=== PATIENT | female | born 1960 | race Two or more races ===

== ENCOUNTER 2017-04-02 21:11 | Emergency (ER) | payer BC, MEDICARE ==
[2017-04-02] MEDS ORDERED: IBUPROFEN 600 MG TABLET PO ONE (22:51)
--- NOTE | 2017-04-02 22:53 | ER Document Report ---
HPI - HPI Patient complains to provider of: Leg injury Onset: Other - 5 days ago Onset/Duration: Better Quality of pain: Achy Pain Level: 1 Context: Patient states that she tripped and fell 2 separate 5 days ago. Patient states that she fell landing on her knee and then she rolled her left ankle. Patient complains of bruising and swelling to left lower extremity and left ankle. Patient states that her family is concerned that she may have fractured something and they wanted her to be evaluated. Patient states the pain and swelling has started to improve. Patient does take Xarelto for history of PE in the past. Associated Symptoms: Other - Left lower extremity swelling and bruising Exacerbated by: Movement Relieved by: Denies Similar symptoms previously: No Recently seen / treated by doctor: No - ROS ROS below otherwise negative: Yes Systems Reviewed and Negative: Yes All other systems reviewed and negative - CONSTITUTIONAL Constitutional: DENIES: Fever - REPRODUCTIVE Reproductive: DENIES: : - MUSCULOSKELETAL Musculoskeletal: REPORTS: Extremity pain, Swelling - DERM Skin Color: Ecchymosis Skin Problems: None Past Medical History - General Information source: Patient - Social History Smoking Status: Never Smoker Frequency of alcohol use: None Drug Abuse: None Occupation: None Lives with: Family Family History: Reviewed & Not Pertinent - Past Medical History Cardiac Medical History: Reports: Hx DVT, Hx Hypercholesterolemia, Hx Hypertension, Hx Pulmonary Embolism - 2006 Pulmonary Medical History: Reports: Hx Asthma Denies: Hx Tuberculosis Renal/ Medical History: Denies: Hx Peritoneal Dialysis Malignancy Medical History: Reports: Hx Breast Cancer Psychiatric Medical History: Reports: Hx Anxiety, Hx Bipolar Disorder, Hx Depression - Sometimes Past Surgical History: Reports: Hx Breast Surgery - Bilateral mastectomies 09/24, debridement 10/29/2013 and 10/31/2013, Hx Cholecystectomy, Hx Tubal Ligation - Immunizations Hx Diphtheria, Pertussis, Tetanus Vaccination: Yes Hx Pneumococcal Vaccination: 08/05/13 Vertical Provider Document - CONSTITUTIONAL Agree With Documented VS: Yes Exam Limitations: No Limitations General Appearance: WD/WN, No Apparent Distress - INFECTION CONTROL TRAVEL OUTSIDE OF THE [place] IN LAST 30 DAYS: No - HEENT HEENT: Atraumatic, Normocephalic - NECK Neck: Normal Inspection - RESPIRATORY Respiratory: No Respiratory Distress O2 Sat by Pulse Oximetry: 97 - CARDIOVASCULAR Pulses: Normal: Posterior tibial, Dorsalis pedis - MUSCULOSKELETAL/EXTREMETIES Musculoskeletal/Extremeties: MAEW, Tender - Tenderness to left knee tibial tuberosity with surrounding ecchymosis and edema. Patient with left ankle tenderness over lateral malleolar area with 1+ edema, Edema, Eccymosis - NEURO Level of Consciousness: Awake, Alert, Appropriate Motor/Sensory: No Motor Deficit - DERM Integumentary: Warm, Dry, No Rash Course - Vital Signs Vital signs: Temp Pulse Resp BP Pulse Ox 98.5 F 84 20 123/93 H 97 04/02/17 22:33 04/02/17 22:33 04/02/17 22:33 04/02/17 22:33 04/02/17 22:33 - Diagnostic Test Radiology reviewed: Image reviewed, Reports reviewed Procedures - Immobilization Left Knee Pre-Proc Neuro Vasc Exam: Normal Immobilizer type: Chuy wrap Performed by: PCT Post-Proc Neuro Vasc Exam: Normal Alignment checked and good: Yes Left Ankle Pre-Proc Neuro Vasc Exam: Normal Immobilizer type: Ankle stirrup Performed by: PCT Post-Proc Neuro Vasc Exam: Normal Alignment checked and good: Yes Discharge - Discharge Clinical Impression: Contusion of leg, left Qualifiers: Encounter type: initial encounter Qualified Code(s): S80.12XA - Contusion of left lower leg, initial encounter Ankle sprain Qualifiers: Encounter type: initial encounter Involved ligament of ankle: unspecified ligament Laterality: left Qualified Code(s): S93.402A - Sprain of unspecified ligament of left ankle, initial encounter Condition: Stable Disposition: HOME, SELF-CARE Instructions: Ankle Stirrup Splint ([facility]), Contusion ([facility]), Sprained Ankle ([facility]) Additional Instructions: Return immediately for any new or worsening symptoms Followup with your primary care provider, call tomorrow to make a followup appointment Follow-up with orthopedic doctor for any continued pain or problems use your walker that you have at home to help with ambulation Referrals: [facility] [Provider Group] - Follow up as needed BLANCO BISWAS MD [Primary Care Provider] - Follow up tomorrow
--- NOTE | 2017-04-02 23:38 | RADIOLOGY REPORT (SQ) ---
EXAM DESCRIPTION: ANKLE LEFT COMPLETE COMPLETED DATE/TIME: 04/02/2017 11:07 pm REASON FOR STUDY: fall, left lat ankle pain COMPARISON: None. NUMBER OF VIEWS: Three views. TECHNIQUE: AP, lateral, and oblique radiographic images acquired of the left ankle. LIMITATIONS: None. FINDINGS: MINERALIZATION: Normal. BONES: No acute fracture or dislocation. No worrisome bone lesions. JOINTS: No effusions. SOFT TISSUES: No soft tissue swelling. No foreign body. OTHER: No other significant finding. IMPRESSION: NO RADIOGRAPHIC EVIDENCE OF ACUTE INJURY. TECHNICAL DOCUMENTATION: JOB ID: [id number] [employer]- All Rights Reserved
--- NOTE | 2017-04-02 23:39 | RADIOLOGY REPORT (SQ) ---
EXAM DESCRIPTION: TIBIA FIBULA LEFT COMPLETED DATE/TIME: 04/02/2017 11:07 pm REASON FOR STUDY: fall, pain to tibial tuberosity COMPARISON: None. NUMBER OF VIEWS: Two views. TECHNIQUE: Two radiographic images acquired of the left tibia and fibula to include the knee and ank le in at least one projection. LIMITATIONS: None. FINDINGS: MINERALIZATION: Normal. BONES: No acute fracture or dislocation. No worrisome bone lesions. SOFT TISSUES: No obvious swelling or foreign body. OTHER: No other significant finding. IMPRESSION: NO RADIOGRAPHIC EVIDENCE OF ACUTE INJURY. TECHNICAL DOCUMENTATION: JOB ID: [id number] [employer]- All Rights Reserved
[2017-04-03 00:34] VITALS: BP 117/94
== END 2017-04-03 00:48 | disposition home or self-care (01) ==
LOC: ER 21:11
DX: S93.402A Sprain of unspecified ligament of left ankle, initial encounter (principal); S80.12XA Contusion of left lower leg, initial encounter; S80.02XA Contusion of left knee, initial encounter; W19.XXXA Unspecified fall, initial encounter; I10 Essential (primary) hypertension; J45.909 Unspecified asthma, uncomplicated; Z86.711 Personal history of pulmonary embolism; Z79.01 Long term (current) use of anticoagulants; Z86.718 Personal history of other venous thrombosis and embolism
CPT/HCPCS: 99283; 73610; 73590; L4350; A9270

== ENCOUNTER → 2017-11-29 | Outpatient (CLI) | payer MEDICARE ==
--- NOTE | 2017-11-29 15:23 | RADIOLOGY REPORT (SQ) ---
EXAM DESCRIPTION: CT CHEST WITH COMPLETED DATE/TIME: 11/29/2017 2:15 pm REASON FOR STUDY: BREAST CA C50.911 MALIGNANT NEOPLASM OF UNSP SITE OF RIGHT FEMALE M[place] COMPARISON: 12/27/2015 TECHNIQUE: CT scan of the chest performed using helical scanning technique with dynamic intravenous contrast injection. Images reviewed with lung, soft tissue and bone windows. Reconstructed coronal and sagittal MPR images reviewed. All images stored on PACS. All CT scanners at this facility use dose modulation, iterative reconstruction, and/or weight based d osing when appropriate to reduce radiation dose to as low as reasonably achievable (ALARA). [facility]: Dose Right [facility]: CareDose [facility]: Dose Right [facility]: Teradose 4D [facility]: [employer]Plus CONTRAST TYPE AND DOSE: contrast/concentration: Isovue 370.00 mg/ml; Total Contrast Delivered: 79.0 ml; Total Saline Delivered: 24.3 ml RENAL FUNCTION: Creatinine 0.5 RADIATION DOSE: CT Rad equipment meets quality standard of care and radiation dose reduction techniq ues were employed. CTDIvol: 10.8 mGy. DLP: 419 mGy-cm. . LIMITATIONS: None. FINDINGS: LUNGS AND PLEURA: No opacities, nodules, masses. No pneumothorax. No effusions. HILAR AND MEDIASTINAL STRUCTURES: No identified masses or abnormal nodes. HEART AND VASCULAR STRUCTURES: No aneurysm or dissection. No central pulmonary emboli. No pericardi al effusion. HARDWARE: None in the chest. UPPER ABDOMEN: No significant findings. Limited exam. THYROID AND OTHER SOFT TISSUES: No masses. No adenopathy. BONES: No significant finding. OTHER: No other significant finding. IMPRESSION: No evidence of metastatic disease. No acute findings. TECHNICAL DOCUMENTATION: JOB ID: [id number] Quality ID # [id number]: Final reports with documentation of one or more dose reduction techniques (e.g., Au tomated exposure control, adjustment of the mA and/or kV according to patient size, use of iterative reconstruction technique) 2010 [employer]- All Rights Reserved Reading location - IP/workstation name: [email or web address]
== END ==
LOC: RAD 13:35
PROVIDERS: ATTEND Internal Medicine Medical Oncology
DX: C50.911 Malignant neoplasm of unspecified site of right female breast (principal)
CPT/HCPCS: 71260; 82565

== ENCOUNTER 2017-12-27 17:07 | Emergency (ER) | payer MEDICARE ==
[2017-12-27] MEDS ORDERED: ASPIRIN 81 MG TABLET, CHEWABLE PO ONE (18:15)
--- NOTE | 2017-12-27 18:18 | EKG REPORT ---
SEVERITY:- BORDERLINE ECG - SINUS RHYTHM BORDERLINE T ABNORMALITIES, ANTERIOR LEADS : Confirmed by: Sarthak Sorto MD 27-Dec-2017 18:18:31
--- NOTE | 2017-12-27 18:20 | ER Document Report ---
ED Medical Screen (RME) - General Chief Complaint: Chest Pain Stated Complaint: CHEST PAIN Time Seen by Provider: 12/27/17 18:15 Mode of Arrival: Ambulatory Information source: Patient Notes: 57-year-old female history of hypertension hypercholesterolemia presents with complaints of 10-11 episodes of sharp chest pain lasting a few seconds rating down her left arm. Patient denies any fevers or chills denies any nausea vomiting or diarrhea Patient denies any previous cardiac history or chest pains I have greeted and performed a rapid initial assessment of this patient. A comprehensive ED assessment and evaluation of the patient, analysis of test results and completion of the medical decision making process will be conducted by additional ED providers. PHYSICAL EXAMINATION: GENERAL: Well-appearing, well-nourished and in no acute distress. HEAD: Atraumatic, normocephalic. EYES: Pupils equal round extraocular movements intact, conjunctiva are normal. ENT: Nares patent NECK: Normal range of motion LUNGS: No respiratory distress Musculoskeletal: Normal range of motion NEUROLOGICAL: Normal speech, normal gait. PSYCH: Normal mood, normal affect. SKIN: Warm, Dry, normal turgor, no rashes or lesions noted. TRAVEL OUTSIDE OF THE [place] IN LAST 30 DAYS: No - Related Data Allergies/Adverse Reactions: lamotrigine [From Lamictal] Allergy (Verified 12/27/17 17:11) Past Medical History - Social History Chew tobacco use (# tins/day): No Frequency of alcohol use: None Drug Abuse: None - Past Medical History Cardiac Medical History: Reports: Hx DVT, Hx Hypercholesterolemia, Hx Hypertension, Hx Pulmonary Embolism - 2006 Pulmonary Medical History: Reports: Hx Asthma Denies: Hx Tuberculosis Renal/ Medical History: Denies: Hx Peritoneal Dialysis Malignancy Medical History: Reports: Hx Breast Cancer Psychiatric Medical History: Reports: Hx Anxiety, Hx Bipolar Disorder, Hx Depression - Sometimes Past Surgical History: Reports: Hx Breast Surgery - Bilateral mastectomies 09/24, debridement 10/29/2013 and 10/31/2013, Hx Cholecystectomy, Hx Tubal Ligation - Immunizations Hx Diphtheria, Pertussis, Tetanus Vaccination: Yes Physical Exam - Vital signs Vitals: Temp Pulse Resp BP Pulse Ox 99.0 F 74 14 138/79 H 99 12/27/17 17:26 12/27/17 17:26 12/27/17 17:26 12/27/17 17:26 12/27/17 17:26 Course - Vital Signs Vital signs: Temp Pulse Resp BP Pulse Ox 99.0 F 74 14 138/79 H 99 12/27/17 17:26 12/27/17 17:26 12/27/17 17:26 12/27/17 17:26 12/27/17 17:26
[2017-12-27 18:57] LABS: ABSOLUTE BASOPHILS # (AUTO) 0.1 10^3/uL (0.0-0.2); ABSOLUTE EOSINOPHILS # (AUTO) 0.3 10^3/uL (0.0-0.6); ABSOLUTE LYMPHOCYTES (AUTO) 1.6 10^3/uL (0.5-4.7); ABSOLUTE MONOCYTES (AUTO) 0.4 10^3/uL (0.1-1.4); ABSOLUTE NEUT (AUTO) 5.6 10^3/uL (1.7-8.2); BASOPHILS % (AUTO) 1.1 % (0-2); EOSINOPHILS % (AUTO) 3.5 % (0-6); HEMATOCRIT 38.6 % (36.0-47.0); HEMOGLOBIN 12.8 g/dL (12.0-15.5); LYMPHOCYTES % (AUTO) 19.9 % (13-45); MEAN CORPUSCULAR HGB CONC 33.2 g/dL (32.0-36.0); MEAN CORPUSCULAR VOLUME 87 fl (80-97); MONOCYTES % (AUTO) 4.5 % (3-13); PLATELET COUNT 262 10^3/uL (150-450); RED BLOOD COUNT 4.41 10^6/uL (3.72-5.28); RED CELL DISTRIBUTION WIDTH 14.4 % (11.5-14.0); TOTAL CELLS COUNTED % (AUTO) 100 %; WHITE BLOOD COUNT 7.9 10^3/uL (4.0-10.5)
[2017-12-27 19:16] LABS: ALANINE AMINOTRANSFERASE 31 U/L (9-52); ALBUMIN 4.3 g/dL (3.5-5.0); ALKALINE PHOSPHATASE 60 U/L (38-126); ANION GAP 11 (5-19); ASPARTATE AMINO TRANSFERASE 27 U/L (14-36); BILIRUBIN,DIRECT 0.3 mg/dL (0.0-0.4); BILIRUBIN,TOTAL 0.4 mg/dL (0.2-1.3); BLOOD UREA NITROGEN 8 mg/dL (7-20); CALCIUM 9.6 mg/dL (8.4-10.2); CARBON DIOXIDE 24 mmol/L (22-30); CHLORIDE 107 mmol/L (98-107); CREATINE KINASE 46 U/L (30-135); GLUCOSE 95 mg/dL (75-110); POTASSIUM 3.8 mmol/L (3.6-5.0); SODIUM 142.3 mmol/L (137-145); TOTAL PROTEIN 7.5 g/dL (6.3-8.2)
[2017-12-27 19:30] LABS: CREATINE KINASE MB 0.34 ng/mL (<4.55)
[2017-12-27 19:35] LABS: TROPONIN I < 0.012 ng/mL
--- NOTE | 2017-12-27 19:51 | RADIOLOGY REPORT (SQ) ---
EXAM DESCRIPTION: CHEST SINGLE VIEW COMPLETED DATE/TIME: 12/27/2017 7:40 pm REASON FOR STUDY: chest pain COMPARISON: 05/09/2014 EXAM PARAMETERS: NUMBER OF VIEWS: One view. TECHNIQUE: Single frontal radiographic view of the chest acquired. RADIATION DOSE: NA LIMITATIONS: None. FINDINGS: LUNGS AND PLEURA: No acute opacities, masses or pneumothorax. No pleural effusion. MEDIASTINUM AND HILAR STRUCTURES: No masses. Contour normal. HEART AND VASCULAR STRUCTURES: Heart normal in size. Normal vasculature. BONES: No acute findings. HARDWARE: None in the chest. OTHER: No other significant finding. IMPRESSION: NO ACUTE RADIOGRAPHIC FINDING IN THE CHEST. TECHNICAL DOCUMENTATION: JOB ID: [id number] [place]-72 2010 [employer]- All Rights Reserved Reading location - IP/workstation name: [email or web address]
--- NOTE | 2017-12-28 00:15 | ER Document Report ---
ED General - General Chief Complaint: Chest Pain Stated Complaint: CHEST PAIN Time Seen by Provider: 12/27/17 18:15 Mode of Arrival: Ambulatory Information source: Patient Notes: This is a 57-year-old female with multiple medical problems (VTE (Xarelto), CVA , psoriatic arthritis, breast cancer) who presents to the emergency room with sharp shooting left-sided chest pain radiating to the left arm lasting 1-2 seconds. Patient states she has had a few episodes each lasting 1-2 seconds. She denies any exertional chest pain or shortness of breath. She denies any shortness of breath. She denies any diaphoresis. She denies any nausea vomiting. TRAVEL OUTSIDE OF THE [place] IN LAST 30 DAYS: No - HPI Onset: Just prior to arrival Onset/Duration: Sudden Quality of pain: Sharp Severity: Moderate Pain Level: 2 Associated symptoms: denies: Chest pain, Fever, Nausea, Vomiting, Shortness of breath Exacerbated by: Denies Relieved by: Denies Similar symptoms previously: No Recently seen / treated by doctor: Yes - Related Data Allergies/Adverse Reactions: lamotrigine [From Lamictal] Allergy (Verified 12/27/17 17:11) Past Medical History - General Information source: Patient - Social History Smoking Status: Never Smoker Cigarette use (# per day): No Chew tobacco use (# tins/day): No Frequency of alcohol use: None Drug Abuse: None Lives with: Family Family History: Reviewed & Not Pertinent Patient has suicidal ideation: No Patient has homicidal ideation: No - Past Medical History Cardiac Medical History: Reports: Hx DVT, Hx Hypercholesterolemia, Hx Hypertension, Hx Pulmonary Embolism - 2006 Pulmonary Medical History: Reports: Hx Asthma Denies: Hx Tuberculosis Renal/ Medical History: Denies: Hx Peritoneal Dialysis Malignancy Medical History: Reports: Hx Breast Cancer Psychiatric Medical History: Reports: Hx Anxiety, Hx Bipolar Disorder, Hx Depression - Sometimes Past Surgical History: Reports: Hx Breast Surgery - Bilateral mastectomies 09/24, debridement 10/29/2013 and 10/31/2013, Hx Cholecystectomy, Hx Tubal Ligation - Immunizations Hx Diphtheria, Pertussis, Tetanus Vaccination: Yes Hx Pneumococcal Vaccination: 08/05/13 Review of Systems - Review of Systems Constitutional: denies: Chills, Fever EENT: No symptoms reported Cardiovascular: See HPI Respiratory: No symptoms reported Gastrointestinal: No symptoms reported Genitourinary: No symptoms reported Female Genitourinary: No symptoms reported Musculoskeletal: See HPI Skin: No symptoms reported Hematologic/Lymphatic: No symptoms reported Neurological/Psychological: No symptoms reported Physical Exam - Vital signs Vitals: Temp Pulse Resp BP Pulse Ox 99.0 F 74 14 138/79 H 99 12/27/17 17:26 12/27/17 17:26 12/27/17 17:26 12/27/17 17:26 12/27/17 17:26 Notes: Physical exam: GENERAL: 57-year-old female, alert and oriented 3, no acute distress. HEAD: Atraumatic, normocephalic. EYES: Pupils equal round and reactive to light, extraocular movements intact, sclera anicteric, conjunctiva are normal. ENT: TMs normal, nares patent, oropharynx clear without exudates. Moist mucous membranes. NECK: Normal range of motion, supple without obvious mass or JVD. LUNGS: Breath sounds clear to auscultation bilaterally and equal. No wheezes rales or rhonchi. HEART: Regular rate and rhythm without murmurs, rubs or gallops. ABDOMEN: Soft, normoactive bowel sounds. No tenderness to palpation. No guarding, no rebound. No masses appreciated. EXTREMITIES: Normal range of motion, no pitting or edema. No clubbing or cyanosis. NEUROLOGICAL: Cranial nerves II through XII grossly intact. Normal speech, moving all extremities. PSYCH: Normal mood, normal affect. SKIN: Warm, Dry, normal turgor, no rashes or lesions noted. Course - Re-evaluation Re-evalutation: 12/28/17 00:27 Patient's heart score is 3. She was observed several hours in the ER and a delayed troponin has been negative. The plan will be for her to follow-up as an outpatient with Dr. Nolasco (the primary care nurse). In the next week. - Vital Signs Vital signs: Temp Pulse Resp BP Pulse Ox 99.0 F 74 18 96/62 L 96 12/27/17 17:26 12/27/17 17:26 12/27/17 23:01 12/27/17 23:01 12/27/17 23:01 - Laboratory Result Diagrams: 12/27/17 18:40 12/27/17 18:40 Laboratory results interpreted by me: 12/27/17 18:40 RDW 14.4 H - Diagnostic Test Radiology reviewed: Image reviewed, Reports reviewed - Chest x-ray shows no infiltrates - EKG Interpretation by Me Rate: Normal Rhythm: NSR - EKG shows normal sinus rhythm with a ventricular rate of 69, nonspecific T changes which have been on a previous EKG in 05/19/2014. She is Discharge - Discharge Clinical Impression: Chest pain Condition: Stable Disposition: HOME, SELF-CARE Additional Instructions: As we discussed, the troponin levels look quite good. And your other blood work looked good as well. I want you to follow-up with the primary care nurse (Dr. Nolasco). Call the office on Saturday. Tell the radiology receptionist that the ER doctor wanted you seen in the next week. Dr. Nolasco will be able to see all the labs done today. In the meantime, continue current medicines. Return to the ER for any worsening chest pain, shortness of breath or any concerns or getting worse. Referrals: BLANCO BISWAS MD [Primary Care Provider] - Follow up as needed CLAUDIA NOLASCO MD [ACTIVE STAFF] - Follow up as needed (I would like you to call Dr. Nolasco's office and tell the radiology receptionist that you were in the emergency room for chest pain and the ER doctor wanted you seen in the next week.)
[2017-12-28 00:37] VITALS: BP 125/75
--- NOTE | 2017-12-28 07:05 | EKG REPORT ---
SEVERITY:- ABNORMAL ECG - SINUS RHYTHM NONSPECIFIC T ABNORMALITIES, ANTERIOR LEADS : Confirmed by: Sarthak Sorto MD 28-Dec-2017 07:04:38
--- NOTE | 2017-12-28 07:06 | EKG REPORT ---
SEVERITY:- BORDERLINE ECG - SINUS RHYTHM BORDERLINE T ABNORMALITIES, ANTERIOR LEADS : Confirmed by: Sarthak Sorto MD 28-Dec-2017 07:04:48
== END 2017-12-28 00:37 | disposition home or self-care (01) ==
LOC: ER 17:07
DX: R07.9 Chest pain, unspecified (principal); Z79.01 Long term (current) use of anticoagulants; Z86.73 Personal history of transient ischemic attack (TIA), and cerebral infarction without residual deficits; Z85.3 Personal history of malignant neoplasm of breast; Z86.718 Personal history of other venous thrombosis and embolism; E78.00 Pure hypercholesterolemia, unspecified; I10 Essential (primary) hypertension; Z86.711 Personal history of pulmonary embolism
CPT/HCPCS: 93005; 99285; 36415; 82553; 82550; 85025; 80053; 84484; 71045; 93010; A9270

== ENCOUNTER 2018-01-14 00:35 | Emergency (ER) | payer MEDICARE ==
[2018-01-14 00:44] VITALS: BP 113/68
[2018-01-14] MEDS ORDERED: FENTANYL CITRATE INJ/PF 100 MCG/2 ML AMPUL IM ONE (01:13)
[2018-01-14] MEDS ORDERED: ONDANSETRON 4 MG TAB.RAPDIS PO ONE (01:13)
--- NOTE | 2018-01-14 01:13 | ER Document Report ---
HPI - HPI Patient complains to provider of: back pain Onset: Other - several weeks Onset/Duration: Persistent Pain Level: 5 Context: 57 yo female with recent dx herniated disc at [facility] ER via MR is c/o worsening pain today, unrelieved with the percoet 5mg, flexeril and prednsone that her was giving her. No saddle anesthesisa or radiculopathy, pain midline lower lumbar into sacrum. came to ER via EMS bc does not druve. , She is waiting to get into pain managment. No fever. Associated Symptoms: None Exacerbated by: Movement Relieved by: Denies Similar symptoms previously: No Recently seen / treated by doctor: No - ROS ROS below otherwise negative: Yes Systems Reviewed and Negative: Yes All other systems reviewed and negative - REPRODUCTIVE LMP: na Past Medical History - General Information source: Patient - Social History Smoking Status: Unknown if Ever Smoked Frequency of alcohol use: None Drug Abuse: None Lives with: Spouse/Significant other Family History: Reviewed & Not Pertinent Patient has suicidal ideation: No Patient has homicidal ideation: No - Past Medical History Cardiac Medical History: Reports: Hx DVT, Hx Hypercholesterolemia, Hx Hypertension, Hx Pulmonary Embolism - 2006 Pulmonary Medical History: Reports: Hx Asthma Malignancy Medical History: Reports: Hx Breast Cancer Psychiatric Medical History: Reports: Hx Anxiety, Hx Bipolar Disorder, Hx Depression - Sometimes Past Surgical History: Reports: Hx Breast Surgery - Bilateral mastectomies 09/24, debridement 10/29/2013 and 10/31/2013, Hx Cholecystectomy, Hx Tubal Ligation - Immunizations Hx Diphtheria, Pertussis, Tetanus Vaccination: Yes Hx Pneumococcal Vaccination: 08/05/13 Vertical Provider Document - CONSTITUTIONAL Agree With Documented VS: Yes Exam Limitations: No Limitations General Appearance: Moderate Distress Notes: laying on stomach in bed, yelling out in pain at times - INFECTION CONTROL TRAVEL OUTSIDE OF THE [place] IN LAST 30 DAYS: No - HEENT HEENT: Normocephalic - NECK Neck: Supple - RESPIRATORY Respiratory: Breath Sounds Normal, No Respiratory Distress - CARDIOVASCULAR Cardiovascular: Regular Rate, Regular Rhythm - GI/ABDOMEN Gastrointestinal: Abdomen Soft, Abdomen Non-Tender - BACK Back: Normal Inspection - tender lower lmbar and sacrum. negative: CVA Tenderness-Right, CVA Tenderness-Left - MUSCULOSKELETAL/EXTREMETIES Musculoskeletal/Extremeties: MAEW, Tender - see above - NEURO Level of Consciousness: Awake Deep Tendon Reflexes: 2+ - norah ankle and patellar - DERM Integumentary: No Rash Course - Re-evaluation Re-evalutation: 01/14/18 01:30 called the radiology group to confirm the imaging that she said she had at [facility] and they have no record of MRI that the pt states she had 3 weeks ago with dx herniated discs. 01/14/18 02:00 I called radiology at [facility] and she did have an MRI done on January 04, 2018 and I have a copy of that that I also gave her and shows an L4-L5 nerve root contact due to central and upward disc protrusion this results in mild to moderate narrowing of the spinal canal. Her reflexes are normal and she is up walking so I will start her on a prednisone taper, continue the Flexeril, encourage Tylenol up to 4000 mg a day. 01/14/18 10:43 able to ambulate in the room - Vital Signs Vital signs: Temp Pulse Resp BP Pulse Ox 99.2 F 105 H 18 113/68 95 01/14/18 00:43 01/14/18 00:43 01/14/18 00:43 01/14/18 00:43 01/14/18 00:43 Discharge - Discharge Clinical Impression: L4-L5 disc protrusion, Low back pain Condition: Good Disposition: HOME, SELF-CARE Instructions: Ice Packs ([facility]), Low Back Pain ([facility]), Pain Medication Injection ( [facility]), Steroid Medication, Warm Packs ([facility]) Additional Instructions: Heat or ice whichever feels better on the back Tylenol up to 4000 mg per day if you are not taking Percocet Flexeril 3 times a day Prednisone for 1 week and then restart the Motrin Prescriptions: Ibuprofen [Motrin 800 mg Tablet] 800 mg PO Q8HP PRN #30 tablet PRN Reason: Cyclobenzaprine HCl [Flexeril 10 Mg Tablet] 10 mg PO TIDP PRN #20 tablet PRN Reason: Prednisone [Deltasone 10 mg Tablet] 10 mg PO ASDIR PRN #21 tablet PRN Reason: Referrals: BLANCO BISWAS MD [Primary Care Provider] - Follow up as needed
[2018-01-14] MEDS ORDERED: PREDNISONE 20 MG TABLET PO ONE (02:00)
== END 2018-01-14 02:10 | disposition home or self-care (01) ==
LOC: ER 00:35
DX: M51.26 Other intervertebral disc displacement, lumbar region (principal); M54.9 Dorsalgia, unspecified; E78.00 Pure hypercholesterolemia, unspecified; I10 Essential (primary) hypertension; Z86.718 Personal history of other venous thrombosis and embolism; Z86.711 Personal history of pulmonary embolism; Z85.3 Personal history of malignant neoplasm of breast; Z90.49 Acquired absence of other specified parts of digestive tract; Z98.51 Tubal ligation status
CPT/HCPCS: 99283; 96372; A9270 ×2; J3010; J7512; S0119

== ENCOUNTER → 2018-01-16 | Outpatient (CLI) | payer MEDICARE ==
[2018-01-16 14:27] LABS: ABSOLUTE EOSINOPHILS # (AUTO) 0.2 10^3/uL (0.0-0.6); ABSOLUTE LYMPHOCYTES (AUTO) 0.9 10^3/uL (0.5-4.7); ABSOLUTE MONOCYTES (AUTO) 0.6 10^3/uL (0.1-1.4); ABSOLUTE NEUT (AUTO) 11.3 10^3/uL (1.7-8.2); BASOPHILS % (AUTO) 0.3 % (0-2); EOSINOPHILS % (AUTO) 1.2 % (0-6); HEMATOCRIT 35.5 % (36.0-47.0); LYMPHOCYTES % (AUTO) 7.3 % (13-45); MEAN CORPUSCULAR HEMOGLOBIN 28.8 pg (27.0-33.4); MEAN CORPUSCULAR HGB CONC 33.8 g/dL (32.0-36.0); MEAN CORPUSCULAR VOLUME 85 fl (80-97); MONOCYTES % (AUTO) 4.4 % (3-13); PLATELET COUNT 588 10^3/uL (150-450); RED BLOOD COUNT 4.17 10^6/uL (3.72-5.28); SEGMENTED NEUTROPHILS % (AUTO) 86.8 % (42-78); TOTAL CELLS COUNTED % (AUTO) 100 %
[2018-01-16 15:40] LABS: ERYTHROCYTE SEDIMENTATION RATE 102 mm/hr (0-30)
== END ==
LOC: OD 13:42
PROVIDERS: ATTEND Physician Assistant
DX: M51.26 Other intervertebral disc displacement, lumbar region (principal)
CPT/HCPCS: 36415; 85025; 85652; 86140

== ENCOUNTER 2018-01-17 23:06 | Emergency (ER) | payer MEDICARE ==
[2018-01-18] MEDS ORDERED: DIAZEPAM INJ 10 MG/2 ML DISP.SYRIN IM ONE (04:40)
[2018-01-18] MEDS ORDERED: KETOROLAC TROMETHAMINE 60 MG/2 ML SDV IM ONE (04:41)
[2018-01-18 05:18] VITALS: BP 121/84
--- NOTE | 2018-01-18 06:17 | ER Document Report ---
ED General - General Chief Complaint: Low Back Pain Stated Complaint: BACK PAIN Time Seen by Provider: 01/18/18 04:17 Mode of Arrival: Wheelchair Information source: Patient Notes: 57-year-old female presents the emergency department with complaint of mid low back pain. Patient reports that she was recently diagnosed with a herniated disc approximately 3 weeks ago. Patient has been seen by Dr. marielena Zepeda and is scheduled to see an orthopedic surgeon on Saturday. Patient reports that she has been taking Flexeril and Percocet at home for the last 7 days however patient reports that this evening her pain got worse as patient has been going to multiple appointments the last 2 days and she feels that she overdid it. Patient denies any bowel incontinence and reports that she is has no issues urinating. Patient reports past medical history of pulmonary embolism, stroke, bipolar, breast cancer, asthma, hypertension and hyperlipidea. TRAVEL OUTSIDE OF THE [place] IN LAST 30 DAYS: No - Related Data Allergies/Adverse Reactions: lamotrigine [From Lamictal] Allergy (Verified 01/18/18 04:24) Past Medical History - General Information source: Patient - Social History Smoking Status: Never Smoker Frequency of alcohol use: None Drug Abuse: None Lives with: Family Family History: Reviewed & Not Pertinent Patient has suicidal ideation: No Patient has homicidal ideation: No - Past Medical History Cardiac Medical History: Reports: Hx DVT, Hx Hypercholesterolemia, Hx Hypertension, Hx Pulmonary Embolism - 2006 Pulmonary Medical History: Reports: Hx Asthma Denies: Hx Tuberculosis Renal/ Medical History: Denies: Hx Peritoneal Dialysis Malignancy Medical History: Reports: Hx Breast Cancer Psychiatric Medical History: Reports: Hx Anxiety, Hx Bipolar Disorder, Hx Depression Past Surgical History: Reports: Hx Breast Surgery - Bilateral mastectomies 09/24, debridement 10/29/2013 and 10/31/2013, Hx Cholecystectomy, Hx Tubal Ligation - Immunizations Hx Diphtheria, Pertussis, Tetanus Vaccination: Yes Hx Pneumococcal Vaccination: 08/05/13 Review of Systems - Review of Systems Constitutional: No symptoms reported EENT: No symptoms reported Cardiovascular: No symptoms reported Respiratory: No symptoms reported Gastrointestinal: No symptoms reported Genitourinary: No symptoms reported Female Genitourinary: No symptoms reported Musculoskeletal: See HPI Skin: No symptoms reported Hematologic/Lymphatic: No symptoms reported Neurological/Psychological: No symptoms reported Physical Exam - Vital signs Vitals: Temp Pulse Resp BP Pulse Ox 98.0 F 94 16 101/69 96 01/17/18 23:49 01/17/18 23:49 01/17/18 23:49 01/17/18 23:49 01/17/18 23:49 - Notes Notes: PHYSICAL EXAMINATION: GENERAL: Well-appearing, well-nourished and in moderate distress. HEAD: Atraumatic, normocephalic. EYES: Pupils equal round and reactive to light, extraocular movements intact, conjunctiva are normal. ENT: Nares patent, oropharynx clear without exudates. Moist mucous membranes. NECK: Normal range of motion, supple without lymphadenopathy LUNGS: Breath sounds clear to auscultation bilaterally and equal. No wheezes rales or rhonchi. HEART: Regular rate and rhythm without murmurs ABDOMEN: Soft, nontender, nondistended abdomen. No guarding, no rebound. No masses appreciated. Female : deferred Musculoskeletal: Pain on palpation to lumbar spine, pain worse to right paraspinous area with radiation to her right leg. NEUROLOGICAL: Cranial nerves grossly intact. Normal speech, normal gait. Normal sensory, motor exams. Normal rectal tone. PSYCH: Normal mood, normal affect. SKIN: Warm, Dry, normal turgor, no rashes or lesions noted. Course - Re-evaluation Re-evalutation: Patient will be given IM dose of Valium and Toradol to help with pain control. Patient is currently awaiting appointment on Saturday with orthopedic surgery. Patient reports recent diagnosis of a herniated disc in the lumbar region, patient is unsure of exactly which disc is herniated. Patient reports that this pain is the same as what she has been experiencing over the last 3 weeks however patient reports that she has overdone it the last few days going to various appointments. Patient reports significant pain reduction and relaxation after administration of Toradol and Valium. Patient will be discharged with prescription for Valium for the next few days until she can follow-up with her orthopedic surgeon on Saturday. Patient cautioned against using Valium and Flexeril at the same time. Patient given ED return precautions. - Vital Signs Vital signs: Temp Pulse Resp BP Pulse Ox 99.1 F 93 19 121/84 97 01/18/18 05:06 01/18/18 05:06 01/18/18 05:06 01/18/18 05:06 01/18/18 05:06 Discharge - Discharge Clinical Impression: Muscle strain Back pain Qualifiers: Back pain location: low back pain Chronicity: unspecified Back pain laterality : midline Sciatica presence: with sciatica Sciatica laterality: sciatica laterality unspecified Qualified Code(s): M54.40 - Lumbago with sciatica, unspecified side Condition: Stable Disposition: HOME, SELF-CARE Additional Instructions: Please keep the appointment that you have scheduled with the orthopedic surgeon for this coming up Saturday. Continue to use your Percocet as prescribed by your provider. I am prescribing you Valium as it helped today while you are in the emergency department. Please stop taking the Flexeril while you are taking the Valium. Return to the emergency department if you experience any bowel incontinence, you are unable to urinate or your back pain becomes worse. Prescriptions: Diazepam [Valium 5 mg Tablet] 5 mg PO QIDP PRN #16 tablet PRN Reason: Muscle Spasms Referrals: BLANCO BISWAS MD [Primary Care Provider] - Follow up as needed
== END 2018-01-18 06:31 | disposition home or self-care (01) ==
LOC: ER 23:06
DX: S39.012A Strain of muscle, fascia and tendon of lower back, initial encounter (principal); M54.40 Lumbago with sciatica, unspecified side; M51.26 Other intervertebral disc displacement, lumbar region; X58.XXXA Exposure to other specified factors, initial encounter; Z79.899 Other long term (current) drug therapy; Z86.711 Personal history of pulmonary embolism; Z86.73 Personal history of transient ischemic attack (TIA), and cerebral infarction without residual deficits; Z85.3 Personal history of malignant neoplasm of breast; J45.909 Unspecified asthma, uncomplicated; I10 Essential (primary) hypertension; E78.5 Hyperlipidemia, unspecified; Z86.718 Personal history of other venous thrombosis and embolism
CPT/HCPCS: 99283; 96372; J3360; J1885

== ENCOUNTER 2018-04-22 13:31 | Emergency (ER) | payer MEDICARE ==
--- NOTE | 2018-04-22 15:09 | ER Document Report ---
ED Neuro Symptoms/Deficit - General Chief Complaint: Numbness Stated Complaint: TOE NUMBNESS Time Seen by Provider: 04/22/18 14:53 Mode of Arrival: Ambulatory Information source: Patient TRAVEL OUTSIDE OF THE [place] IN LAST 30 DAYS: No - HPI Patient complains to provider of: Paresthesia Onset: This morning Awoke with symptoms: Yes Symptoms are: Constant Duration: Continues in ED, More than 3 hrs Quality of pain: No pain Severity: Mild Context: Other - BACK SURGERY (PARTIAL LAMINECTOMY) 3 MONTHS AGO. denies: Insect bite, Tick bite, Falling, Head injury Loss of consciousness: No loss of consciousness Was STROKE ALERT Called: No Baseline Cognitive: Alert, oriented X 3 Baseline Gait: Walks w/o assistance Alert To: Name/Voice Patient Orientation: Person, Place, Time, Events New weakness: denies: LUE, LLE, RUE, RLE, L facial, R facial, General (diffuse) Altered sensation: RLE - LIMITED TO GREAT TOE, DISTAL TO PIP JOINT Associated symptoms: None Similar symptoms previously: No Recently seen / treated by doctor: No Notes: Patient describes no positional component. Paresthesia remains the same, regardless of elevation movement of foot, ankle, and toes. Similarly, motion of the lower spine provokes no change in symptoms. - Related Data Allergies/Adverse Reactions: lamotrigine [From Lamictal] Allergy (Verified 04/22/18 13:33) Past Medical History - General Information source: Patient - Social History Smoking Status: Former Smoker Cigarette use (# per day): No Chew tobacco use (# tins/day): No Frequency of alcohol use: None Drug Abuse: None Lives with: Spouse/Significant other Family History: Reviewed & Not Pertinent Patient has suicidal ideation: No Patient has homicidal ideation: No - Past Medical History Cardiac Medical History: Reports: Hx DVT, Hx Hypercholesterolemia, Hx Hypertension, Hx Pulmonary Embolism - 2006 Pulmonary Medical History: Reports: Hx Asthma Denies: Hx Tuberculosis EENT Medical History: Reports: None Neurological Medical History: Reports: Other - SPINAL ABSCESS, LUMBOSACRAL Endocrine Medical History: Reports: None. Denies: Hx Diabetes Mellitus Type 1, Hx Diabetes Mellitus Type 2 Renal/ Medical History: Denies: Hx Peritoneal Dialysis Malignancy Medical History: Reports: Hx Breast Cancer GI Medical History: Reports: None Musculoskeletal Medical History: Reports Hx Arthritis - PSORIATIC Skin Medical History: Reports None Psychiatric Medical History: Reports: Hx Anxiety, Hx Bipolar Disorder, Hx Depression Past Surgical History: Reports: Hx Breast Surgery - Bilateral mastectomies 09/24, debridement 10/29/2013 and 10/31/2013, Hx Cholecystectomy, Hx Neurologic Surgery, Hx Tubal Ligation - Immunizations Hx Diphtheria, Pertussis, Tetanus Vaccination: Yes Hx Pneumococcal Vaccination: 08/05/13 Review of Systems - Review of Systems Constitutional: No symptoms reported. denies: Chills, Fever EENT: No symptoms reported Cardiovascular: No symptoms reported Respiratory: No symptoms reported Gastrointestinal: No symptoms reported Female Genitourinary: Post menopausal Musculoskeletal: No symptoms reported Skin: No symptoms reported Neurological/Psychological: See HPI Physical Exam - Vital signs Vitals: Temp Pulse Resp BP Pulse Ox 98.5 F 72 18 120/86 H 97 04/22/18 13:37 04/22/18 13:37 04/22/18 13:37 04/22/18 13:37 04/22/18 13:37 Interpretation: Normal. No: Tachycardic, Tachypneic, Febrile - General General appearance: Appears well, Alert In distress: None - HEENT Head: Normocephalic Eyes: Normal Conjunctiva: Normal Ears: Normal Nasal: Normal Mouth/Lips: Normal Mucous membranes: Normal - Respiratory Respiratory status: No respiratory distress - Cardiovascular Rhythm: Regular - Back Back: Normal, Scars - WELL-HEALED - Extremities General upper extremity: Normal inspection General lower extremity: Normal inspection Foot: Normal, Other - DP PULSE STRONG, CAP REFILL LESS THAN SEC. - Neurological Neuro grossly intact: No Cognition: Normal Orientation: AAOx4 Speech: Normal Sensory: Altered light touch - R. GREAT TOE, 2-pt discrimination - R. GREAT TOE , Pin-prick - R. GREAT TOE - Psychological Associated symptoms: Normal affect, Normal mood - Skin Skin Temperature: Warm Skin Moisture: Dry Skin Color: Normal Skin Turgor: Elastic Course - Vital Signs Vital signs: Temp Pulse Resp BP Pulse Ox 98.5 F 72 18 120/86 H 97 04/22/18 13:37 04/22/18 13:37 04/22/18 13:37 04/22/18 13:37 04/22/18 13:37 Discharge - Discharge Clinical Impression: Paresthesias/numbness Condition: Stable Disposition: HOME, SELF-CARE Instructions: Numbness or Paresthesia ([facility]) Additional Instructions: CONTINUE YOUR USUAL MEDICATIONS. FOLLOW UP WITH YOUR NEUROSURGEON. RETURN TO E.R. FOR RE-EVALUATION IF THE NUMBNESS BECOMES MORE EXTENSIVE.
[2018-04-22 15:32] VITALS: BP 121/79
== END 2018-04-22 15:30 | disposition home or self-care (01) ==
LOC: ER 13:31
DX: R20.0 Anesthesia of skin (principal); R20.2 Paresthesia of skin; I10 Essential (primary) hypertension; J45.909 Unspecified asthma, uncomplicated; Z87.891 Personal history of nicotine dependence; Z85.3 Personal history of malignant neoplasm of breast
CPT/HCPCS: 99283

== ENCOUNTER → 2019-03-17 | Outpatient (CLI) | payer MEDICARE ==
[2019-03-17 10:13] LABS: ABSOLUTE EOSINOPHILS # (AUTO) 0.2 10^3/uL (0.0-0.6); ABSOLUTE LYMPHOCYTES (AUTO) 1.2 10^3/uL (0.5-4.7); ABSOLUTE MONOCYTES (AUTO) 0.3 10^3/uL (0.1-1.4); BASOPHILS % (AUTO) 0.5 % (0-2); EOSINOPHILS % (AUTO) 4.3 % (0-6); HEMATOCRIT 37.8 % (36.0-47.0); HEMOGLOBIN 12.6 g/dL (12.0-15.5); LYMPHOCYTES % (AUTO) 20.3 % (13-45); MEAN CORPUSCULAR HEMOGLOBIN 28.8 pg (27.0-33.4); MEAN CORPUSCULAR HGB CONC 33.3 g/dL (32.0-36.0); MEAN CORPUSCULAR VOLUME 87 fl (80-97); MONOCYTES % (AUTO) 5.1 % (3-13); PLATELET COUNT 218 10^3/uL (150-450); RED BLOOD COUNT 4.36 10^6/uL (3.72-5.28); RED CELL DISTRIBUTION WIDTH 13.6 % (11.5-14.0); SEGMENTED NEUTROPHILS % (AUTO) 69.8 % (42-78); TOTAL CELLS COUNTED % (AUTO) 100 %; WHITE BLOOD COUNT 5.7 10^3/uL (4.0-10.5)
[2019-03-17 10:47] LABS: ALBUMIN 4.2 g/dL (3.5-5.0); ALKALINE PHOSPHATASE 62 U/L (38-126); ANION GAP 11 (5-19); ASPARTATE AMINO TRANSFERASE 20 U/L (14-36); BILIRUBIN,DIRECT 0.2 mg/dL (0.0-0.4); BILIRUBIN,TOTAL 0.4 mg/dL (0.2-1.3); BLOOD UREA NITROGEN 10 mg/dL (7-20); CALCIUM 9.6 mg/dL (8.4-10.2); CARBON DIOXIDE 22 mmol/L (22-30); CHLORIDE 105 mmol/L (98-107); CHOLESTEROL 165.43 mg/dL (0-200); GLUCOSE 106 mg/dL (75-110); LITHIUM 0.5 mEq/L (0.6-1.2); POTASSIUM 4.2 mmol/L (3.6-5.0); TOTAL PROTEIN 6.8 g/dL (6.3-8.2); TRIGLYCERIDES 123 mg/dL (<150)
[2019-03-17 11:18] LABS: FREE T4 (FREE THYROXINE) 0.83 ng/dL (0.78-2.19)
[2019-03-17 11:20] LABS: DIRECT LDL 105 mg/dL (<100)
[2019-03-17 11:31] LABS: THYROID STIMULATING HORMONE 3.43 uIU/mL (0.47-4.68)
== END ==
LOC: OD 09:19
PROVIDERS: ATTEND Physician Assistant
DX: F41.9 Anxiety disorder, unspecified (principal); Z79.899 Other long term (current) drug therapy
CPT/HCPCS: 36415; 80053; 80061; 80178; 83036; 84439; 84443; 85025

== ENCOUNTER → 2019-04-27 | Outpatient (CLI) | payer MEDICARE ==
--- NOTE | 2019-04-27 19:34 | RADIOLOGY REPORT (SQ) ---
EXAM DESCRIPTION: MRI HEAD COMBO COMPLETED DATE/TIME: 04/27/2019 3:38 pm REASON FOR STUDY: R41.3 OTHER AMNESIA R41.3 OTHER AMNESIA COMPARISON: PET-CT 03/11/2015 MRI brain 05/19/2014 TECHNIQUE: Multiplanar imaging includes noncontrasted T1, T2, FLAIR, diffusion with ADC map and post gadolinium contrast T1 sequences. Images stored on PACS. CONTRAST TYPE AND DOSE: mL RENAL FUNCTION: Not indicated. ACR Type II contrast agent associated with few, if any, unconfounded cases of NSF LIMITATIONS: None. FINDINGS: ANATOMY: No anomalies. Normal vascular flow voids. Pituitary fossa normal. CSF SPACES: Normal in size and contour. No hemorrhage. CEREBRUM: Sulci and gyri normal in size and contour. Normal white matter signal on FLAIR imaging. No evidence of hemorrhage, mass, or extraaxial fluid collection. No abnormal enhancement post contrast. POSTERIOR FOSSA: No signal alteration. No hemorrhage. No edema, masses, or mass effect. Internal zeny tory canals, cerebellopontine angles, mastoids normal. No enhancing lesions. No abnormal enhancement post contrast. DIFFUSION IMAGING: Negative for acute or subacute infarction. ORBITS: No masses. Globes normal. PARANASAL SINUSES: No fluid levels. Mucosa normal. OTHER: No other significant finding. IMPRESSION: NORMAL MRI OF THE BRAIN WITHOUT AND WITH INTRAVENOUS GADOLINIUM CONTRAST. EVIDENCE OF ACUTE STROKE: NO. TECHNICAL DOCUMENTATION: JOB ID: [id number] [employer]- All Rights Reserved Reading location - IP/workstation name: [email or web address]
== END ==
LOC: RAD 13:13
PROVIDERS: ATTEND Nurse Practitioner
DX: R41.3 Other amnesia (principal)
CPT/HCPCS: 70553